=== PATIENT | male | born 1960 | race Caucasian/White ===

== ENCOUNTER 2018-11-08 09:26 | Emergency (ER) | payer OTHER ==
--- NOTE | 2018-11-08 09:58 | EDPHYS ---
Physician Documentation [facility] Name: Pasha Johnson Age: 58 yrs Sex: Male : 1960 Arrival Date: 11/08/2018 Time: 09:29 Bed 7 Private MD: ED Physician Hussain West HPI: 11/08 09:51 This 58 yrs old Male presents to ER via Ambulatory with complaints of Leg jr8 Pain - Redness. 09:51 The patient presents with pain. The complaints affect the lateral aspect of right calf. jr8 Context: The problem was sustained at an unknown site. Onset: The symptoms/episode began/occurred gradually, for the last several months. Modifying factors: The symptoms are alleviated by nothing. the symptoms are aggravated by nothing. Associated signs and symptoms: The patient has no apparent associated signs or symptoms. Severity of symptoms: At their worst the symptoms were mild, in the emergency department the symptoms are unchanged. The patient has not experienced similar symptoms in the past. The patient has not recently seen a physician. Patient stated that he has had a chronic wound to right lateral lower leg for some time. Stated that it will not completely heel all the way. Aggravates it from scratching or hitting it on something and then will get worse. Stated that recently he [place] and now having mild redness to region and more pain then normal . Historical: - Allergies: 09:43 No Known Allergies; ss - Home Meds: 09:43 tamsulosin 0.4 mg oral cp24 1 cap once daily [Active]; ss - PMHx: 09:43 BPH; ss - PSHx: 09:43 Hernia repair; bilateral knee replacement; ss - Immunization history:: Adult Immunizations unknown. - Social history:: Smoking status: Patient/guardian denies using tobacco. - Ebola Screening: : Patient denies exposure to infectious person Patient denies travel to an Ebola-affected area in the 21 days before illness onset. ROS: 09:51 Eyes: Negative for injury, pain, redness, and discharge, ENT: Negative for injury, jr8 pain, and discharge, Neck: Negative for injury, pain, and swelling, Cardiovascular: Negative for chest pain, palpitations, and edema, Respiratory: Negative for shortness of breath, cough, wheezing, and pleuritic chest pain, Abdomen/GI: Negative for abdominal pain, nausea, vomiting, diarrhea, and constipation, Back: Negative for injury and pain, MS/Extremity: Negative for injury and deformity, Neuro: Negative for headache, weakness, numbness, tingling, and seizure. 09:51 Skin: Positive for erythema, ulceration, of the lateral aspect of right calf. Exam: 09:51 Constitutional: This is a well developed, well nourished patient who is awake, alert, jr8 and in no acute distress. Cardiovascular: Regular rate and rhythm with a normal S1 and S2. No gallops, murmurs, or rubs. Normal PMI, no JVD. No pulse deficits. Respiratory: Lungs have equal breath sounds bilaterally, clear to auscultation and percussion. No rales, rhonchi or wheezes noted. No increased work of breathing, no retractions or nasal flaring. Abdomen/GI: Soft, non-tender, with normal bowel sounds. No distension or tympany. No guarding or rebound. No evidence of tenderness throughout. Back: No spinal tenderness. No costovertebral tenderness. Full range of motion. MS/ Extremity: Pulses equal, no cyanosis. Neurovascular intact. Full, normal range of motion. Neuro: Awake and alert, GCS 15, oriented to person, place, time, and situation. Cranial nerves II-XII grossly intact. Motor strength 5/5 in all extremities. Sensory grossly intact. Cerebellar exam normal. Normal gait. 09:51 Skin: approximately 1.5 cm scabbed region on right latera calf with mild surrounding erythema and irregular flesh colored skin. No bleeding. No surrounding cellulitis or lymphangitis. Mild tenderness to touch without warmth . Vital Signs: 09:39 BP 179 / 96; Pulse 87; Resp 17; Temp 98.2(TE); Pulse Ox 97% on R/A; Weight 142.88 kg; ss Height 5 ft. 7 in. (170.18 cm); Pain 0/10; 09:39 Body Mass Index 49.34 (142.88 kg, 170.18 cm) ss MDM: 09:38 Patient medically screened. jr8 09:51 Data reviewed: vital signs, nurses notes, and as a result, I will discharge patient. jr8 Data interpreted: Pulse oximetry: on room air is 97 %. Interpretation: normal. Counseling: I had a detailed discussion with the patient and/or guardian regarding: the historical points, exam findings, and any diagnostic results supporting the discharge/admit diagnosis, the need for outpatient follow up, a electrician research, to return to the emergency department if symptoms worsen or persist or if there are any questions or concerns that arise at home. ED course: Discussed with patient that we will cover him with antibiotics to insure it does not become infected but there is concern that this chronic wound may be cancerous in origin based on exam and story. Unlikely arterial PAD related based on exam. Could be venous insufficiency related but recommend dermatology to evaluate it. Patient stated that he has a electrician research and will f/u with them soon. Administered Medications: No medications were administered Disposition: 11/09 09:41 Co-signature as Attending Physician, Hussain West MD I agree with the assessment and wa plan of care. Disposition: 11/08/18 09:58 Discharged to Home. Impression: Local infection of the skin and subcutaneous tissue, unspecified. - Condition is Stable. - Discharge Instructions: Cellulitis, Adult. - Prescriptions for Bactrim DS 800- 160 mg Oral Tablet - take 1 tablet by ORAL route every 12 hours for 10 days; 20 tablet. - Medication Reconciliation Form, Thank You Letter, Antibiotic Education, Prescription Opioid Use form. - Follow up: Private Physician; When: 2 - 3 days; Reason: Wound Recheck, Recheck today's complaints, Continuance of care, Re-evaluation by your physician. - Problem is new. - Symptoms have improved. Signatures: Lisa Silva ms, Shelby, RN RN ss Roszak, Josh, PA PA jr8 Hussain West MD MD ca Corrections: (The following items were deleted from the chart) 11/08 10:11 09:58 11/08/2018 09:58 Discharged to Home. Impression: Local infection of the skin and ms subcutaneous tissue, unspecified. Condition is Stable. Forms are Medication Reconciliation Form, Thank You Letter, Antibiotic Education, Prescription Opioid Use. Follow up: Private Physician; When: 2 - 3 days; Reason: Wound Recheck, Recheck today's complaints, Continuance of care, Re-evaluation by your physician. Problem is new. Symptoms have improved. jr8
--- NOTE | 2018-11-08 09:58 | ER ---
Nurse's Notes [facility] Name: Pasha Johnson Age: 58 yrs Sex: Male : 1960 Arrival Date: 11/08/2018 Time: 09:29 Bed 7 Private MD: Diagnosis: Local infection of the skin and subcutaneous tissue, unspecified Presentation: 11/08 09:39 Presenting complaint: Patient states: "I have a spot on my leg that comes and goes, ss since April 2018. I've been in [place] the last week and now that spot is getting red. I know all the bad stuff that's in the water right now so it has me worried.". Transition of care: patient was not received from another setting of care. Onset of symptoms is unknown. Risk Assessment: Do you want to hurt yourself or someone else? Patient reports no desire to harm self or others. Initial Sepsis Screen: Does the patient meet any 2 criteria? No. Patient's initial sepsis screen is negative. Does the patient have a suspected source of infection? Yes: Skin breakdown/wound. Care prior to arrival: None. 09:39 Method Of Arrival: Ambulatory ss 09:39 Acuity: MYNOR 5 ss Triage Assessment: 09:50 General: Appears in no apparent distress. uncomfortable, Behavior is calm, cooperative, hj appropriate for age. Pain: Complains of pain in right leg and left leg. Historical: - Allergies: 09:43 No Known Allergies; ss - Home Meds: 09:43 tamsulosin 0.4 mg oral cp24 1 cap once daily [Active]; ss - PMHx: 09:43 BPH; ss - PSHx: 09:43 Hernia repair; bilateral knee replacement; ss - Immunization history:: Adult Immunizations unknown. - Social history:: Smoking status: Patient/guardian denies using tobacco. - Ebola Screening: : Patient denies exposure to infectious person Patient denies travel to an Ebola-affected area in the 21 days before illness onset. Screenin:50 Abuse screen: Denies threats or abuse. Denies injuries from another. Nutritional hj screening: No deficits noted. Tuberculosis screening: No symptoms or risk factors identified. Fall Risk None identified. Assessment: 09:50 General: Appears in no apparent distress. uncomfortable, Behavior is calm, cooperative, hj appropriate for age. Pain: Complains of pain in right leg and left leg. Neuro: Level of Consciousness is awake, alert, obeys commands, Oriented to person, place, time, situation, Appropriate for age. Cardiovascular: Capillary refill < 3 seconds Patient's skin is warm and dry. Respiratory: Airway is patent Respiratory effort is even, unlabored, Respiratory pattern is regular, symmetrical. GI: No signs and/or symptoms were reported involving the gastrointestinal system. : No signs and/or symptoms were reported regarding the genitourinary system. EENT: No signs and/or symptoms were reported regarding the EENT system. Derm: Skin Skin is red. Musculoskeletal: Reports pain in right leg and left leg. Vital Signs: 09:39 BP 179 / 96; Pulse 87; Resp 17; Temp 98.2(TE); Pulse Ox 97% on R/A; Weight 142.88 kg; ss Height 5 ft. 7 in. (170.18 cm); Pain 0/10; 09:39 Body Mass Index 49.34 (142.88 kg, 170.18 cm) ED Course: 09:29 Patient arrived in ED. as 09:34 Milind Ruvalcaba, RN is Primary Nurse. hj 09:34 Randell Rivera PA is PHCP. jr8 09:34 Hussain West MD is Attending Physician. jr8 09:42 Triage completed. ss 09:43 Arm band placed on right wrist. ss 09:50 Patient has correct armband on for positive identification. Placed in gown. Bed in low hj position. Call light in reach. Side rails up X 1. Administered Medications: No medications were administered Outcome: 09:58 Discharge ordered by . jr8 10:11 Patient left the ED. ms Signatures: Nina Curtis Maria ms Smirch, Shelby, MIGDALIA NEGRON Randell Rivera PA PA jr8 Milind Ruvalcaba RN RN hj
== END 2018-11-08 10:11 | disposition home or self-care (01) ==
LOC: ER 09:26
DX: L08.9 Local infection of the skin and subcutaneous tissue, unspecified (principal); N40.0 Benign prostatic hyperplasia without lower urinary tract symptoms
CPT/HCPCS: 99281